=== PATIENT | male | born 1975 | race African-American/Black ===

== ENCOUNTER 2018-08-21 19:28 | Inpatient (IN) | payer OTHER ==
[~2018-08-21] VITALS: Ht 172.7 cm; Wt 92.5 kg
[2018-08-21 19:29] VITALS: BP 143/62
[2018-08-21] MEDS ORDERED: NORVASC5 MG PO (19:35)
[2018-08-21] MEDS ORDERED: INDAPAMIDE2.5 MG PO (19:35)
[2018-08-21] MEDS ORDERED: LIPITOR 20 MG T20 M1 PO (19:35)
[2018-08-21] MEDS ORDERED: COZAAR 25 MG TA25 M2 PO (19:36)
[2018-08-21] MEDS ORDERED: MELATONIN5 M1 PO (19:36)
[2018-08-21] MEDS ORDERED: ASPIR 8181 M1 PO (19:36)
[2018-08-21] MEDS ORDERED: RESTORIL15 MG PO (19:37)
[2018-08-21 21:40] LABS: CALCIUM 9.3 mg/dL (8.5-10.1); CREATININE 1.7 mg/dL (0.7-1.3); POTASSIUM 3.2 mmol/L (3.5-5.1)
[2018-08-21 21:44] LABS: APTT 25.6 Seconds (24.5-32.8); PROTIME 9.8 Seconds (9.3-11.4)
[2018-08-21 22:49] LABS: MCH 17.6 pg (26.0-34.0); MCHC 29.5 % (28.0-37.0); MCV 59.5 fL (80.0-100.0); PLATELET COUNT 220 thou/uL (150-400); PLATELET ESTIMATE NORMAL; RBC 3.26 mil/uL (4.50-6.00); RDW 21.8 % (10.5-14.5); WBC 5.3 thou/uL (4.0-11.0)
[2018-08-21 22:50] LABS: ABSOLUTE NEUTROPHILS 3.3 thou/uL (1.4-8.2); ANISOCYTOSIS 2+; HYPOCHROMASIA 3+; MICROCYTES 3+; POLYCHROMASIA 2+
[2018-08-21 23:35] VITALS: BP 130/78; BP 134/75; BP 139/89; BP 144/74; BP 148/81
[2018-08-22 03:15] VITALS: BP 128/76; BP 129/78; BP 130/82; BP 132/89; BP 133/81
[2018-08-22 03:46] LABS: % SATURATION 3 % (20-39); IRON 15 ug/dL (65-175); TIBC 469 ug/dL (250-450)
[2018-08-22 06:21] LABS: HEMATOCRIT 19.2 % (42.0-52.0); HEMOGLOBIN 5.7 gm/dL (14.0-18.0)
[2018-08-22 06:59] LABS: HEMATOCRIT 25.1 % (42.0-52.0); HEMOGLOBIN 7.9 gm/dL (14.0-18.0); MCH 21.1 pg (26.0-34.0); MCHC 31.5 g/dL (28.0-37.0); MCV 66.9 fL (80.0-100.0); RBC 3.75 mil/uL (4.50-6.00); RDW 28.8 % (10.5-14.5); WBC 5.5 thou/uL (4.0-11.0)
[2018-08-22 07:04] LABS: CALCIUM 9.3 mg/dL (8.5-10.1); CREATININE 1.8 mg/dL (0.7-1.3); POTASSIUM 3.7 mmol/L (3.5-5.1)
--- NOTE | 2018-08-22 08:01 | EKG ---
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: phani : 1975 Requested By: Lisandra Dooley Order Number: [id number] MD: Lisandro Jauregui Measurements Intervals [place] Rate: 83 P: 50 HI: 147 QRS: 47 QRSD: 87 T: 71 QT: 367 QTc: 432 Interpretive Statements Sinus rhythm Consider left ventricular hypertrophy Nonspecific T abnrm, anterolateral leads Compared to ECG 08/02/2017 00:06:05 Sinus tachycardia no longer present Atrial abnormality no longer present T-wave abnormality no longer present Electronically Signed On 08-22-2018 8:01:19 CDT by Lisandro Jauregui [email or web address] ��������������������������������������������� <ELECTRONICALLY SIGNED> ���������������������������������������� By: Lisandro Jauregui MD ��������������������������������������������� 08/22/18800 21 21 Lisandro Jauregui MD /EPI
[2018-08-22 14:39] VITALS: BP 125/87
[2018-08-22] MEDS ORDERED: FOCUS FACTOR PO (15:00)
[2018-08-22] MEDS ORDERED: UNICOMPLEX M TA1 TA1 PO (15:01)
[2018-08-22 15:13] VITALS: BP 145/94
--- NOTE | 2018-08-22 15:56 | NUR ---
ADM PT CAME IN FROM ER. PT ORIENTED TO ROOM. PT ON CLR DIET. NPO IN MN FOR UPPER AND LOWER GI. BOWEL PREP STARTED. PT INSTRUCTED. WILL CONTINUE TO MONITOR.
[2018-08-22 20:22] VITALS: BP 133/90
[2018-08-23 03:31] VITALS: BP 129/81
--- NOTE | 2018-08-23 04:13 | NUR ---
Completed bowel prep without any issues. Last reported bm around 0300 light brown to yellow , liquid , no formed stool. Kept NPO since MN for EGD and Colonoscopy. UP ad anastasiya in room with steady gait. Denies any weakness. No active bleeding noted. Will continue to monitor.
[2018-08-23 05:52] LABS: HEMATOCRIT 26.6 % (42.0-52.0); HEMOGLOBIN 8.1 gm/dL (14.0-18.0)
[2018-08-23 07:26] VITALS: BP 119/82
[2018-08-23 11:31] VITALS: BP 128/77
[2018-08-23] MEDS ORDERED: PROTONIX40 M1 PO (14:12)
[2018-08-23] MEDS ORDERED: IRON325 PO (14:13)
--- NOTE | 2018-08-23 14:30 | NUR ---
ASSUMED PATIENT CARE AT 0700, A/O X2. NO DISDRESS NOTED. WOUND PICTURES TAKING. PICC LINE DC'D. WILL DC TO HOME WITHY HH SOON.
[2018-08-23 14:49] VITALS: BP 128/77
--- NOTE | 2018-08-23 15:22 | NUR ---
PATIENT BACK TO [facility] FROM GI LAB. TOLERATED DIET. VSS. WILL HAVE M2 STUDY AT OUT PATIENT. DC TO HOME SOON.
--- NOTE | 2018-08-25 10:06 | PATH ---
[facility] [place] [address] PATHOLOGY RPT PROCEDURE Name: TAN SHUKLA Room #: 354-P DIS IN M.R.#: [id number] ������������������ Admission: 08/21/18 ������������������ Date of : 71 Discharge: 08/23/18 Report #: [id number] Path Case #: [id number] [facility] Accession Number: [id number] . 01 Material submitted: . PART A: duodenum - BX DUODENUM R/O CELIAC SPRUE PART B: stomach - BX GASTRITIS R/O H PYLORI PART C: rectum - BX POLYP AT RECTUM X6 . 01 Clinical history: . Pre-OP DX: Anemia Post-OP DX: Gastritis, rectal polyps . 02 Diagnosis: A. Small bowel mucosa, duodenum, rule out celiac sprue, endoscopic biopsy: - No diagnostic abnormalities present. - Negative for villous blunting or increase in intraepithelial lymphocytes. . B. Gastric mucosa, gastritis, rule out H. pylori, endoscopic biopsy: - Mild chronic inflammation. - Negative for intestinal metaplasia or atrophy. - Negative for Helicobacter pylori (properly controlled immunohistochemical stain performed). . C. Polyp x 6, rectum, endoscopic biopsy: - All fragments sampled showing changes compatible with a hyperplastic polyp. - Negative for dysplasia. (IUV:pit 08/24/2018) QTP/08/24/2018 . 02 Electronically signed: . Staci Francis MD, Pathologist NPI- [id number] . 01 Gross description: . A. Received in formalin labeled "Tan Shukla, JOLENE duodenum, rule out celiac sprue," are 2 segments of pelaez soft tissue measuring 0.5 x 0.1 x 0.1 cm in aggregate dimensions and ranging from 0.2 to 0.3 cm in maximum dimension. The specimen is entirely submitted in cassette A1. . B. Received in formalin labeled "Tan Shukla BX gastritis, rule out H. pylori," is a single segment of pelaez soft tissue measuring 0.6 cm in maximum dimension. The specimen is entirely submitted in cassette B1. . C. Received in formalin labeled "Tan Shukla BX polyp at [address] [address] PATHOLOGY RPT PROCEDURE Name: TAN SHUKLA Room #: 354-P DIS IN M.R.#: [id number] ������������������ Admission: 08/21/18 ������������������ Date of : 71 Discharge: 08/23/18 Report #: [id number] Path Case #: [id number] x6," are 3 segments of pelaez soft tissue measuring 1.0 x 0.8 x 0.3 cm in aggregate dimensions and ranging from 0.1 to 0.6 cm in maximum dimension. The specimen is submitted entirely in cassette C1. After thorough examination of the specimen container, no additional tissue was recovered. (TSD; 08/23/2018) TOB/TOB . 02 Pathologist provided ICD-10: K29.50, K62.1 . 02 CPT . 115419, 734537, 963960, Z78124 Specimen Comment: A courtesy copy of this report has been sent to Specimen Comment: [phone], , . Specimen Comment: Report sent to ,DR CISNEROS / DR VELIZ Specimen Comment: A duplicate report has been generated due to demographic updates. Performed at: [address], [place] [id number] MD Florentin Cardona MD Phone: [phone] Performed at: [address] [id number] MD Staci Francis MD Phone: [phone]
== END 2018-08-23 15:38 | disposition home health service (06) | DRG 378 ==
LOC: ER 19:28 → EROBS 22:16 → 3W 22:16
PROVIDERS: Emergency Medicine; Nurse Practitioner Acute Care; ADMIT Internal Medicine
PROC: 30233N1 Transfusion of Nonautologous Red Blood Cells into Peripheral Vein, Percutaneous Approach (ICD-10-PCS; principal; 2018-08-21)
PROC: 0DB78ZX Excision of Stomach, Pylorus, Via Natural or Artificial Opening Endoscopic, Diagnostic (ICD-10-PCS; 2018-08-23)
PROC: 0DBP8ZX Excision of Rectum, Via Natural or Artificial Opening Endoscopic, Diagnostic (ICD-10-PCS; 2018-08-23)
PROC: 0DB98ZX Excision of Duodenum, Via Natural or Artificial Opening Endoscopic, Diagnostic (ICD-10-PCS; 2018-08-23)
DX: K92.2 Gastrointestinal hemorrhage, unspecified (principal); D62 Acute posthemorrhagic anemia; D50.9 Iron deficiency anemia, unspecified; N18.9 Chronic kidney disease, unspecified; E87.6 Hypokalemia; I12.9 Hypertensive chronic kidney disease with stage 1 through stage 4 chronic kidney disease, or unspecified chronic kidney disease; F17.210 Nicotine dependence, cigarettes, uncomplicated; E78.5 Hyperlipidemia, unspecified; Z86.73 Personal history of transient ischemic attack (TIA), and cerebral infarction without residual deficits; Z79.82 Long term (current) use of aspirin; Z83.3 Family history of diabetes mellitus; Z82.3 Family history of stroke; Z80.3 Family history of malignant neoplasm of breast
CPT/HCPCS: 10879; 62110; 62900

== ENCOUNTER → 2018-10-09 | Outpatient (CLI) | payer OTHER ==
[~2018-10-09] MED LIST: ASPIR 8181 M1 PO; COZAAR 25 MG TA25 M2 PO; FOCUS FACTOR PO; INDAPAMIDE2.5 MG PO; IRON325 PO; LIPITOR 20 MG T20 M1 PO; MELATONIN5 M1 PO; NORVASC5 MG PO; PROTONIX40 M1 PO; RESTORIL15 MG PO; UNICOMPLEX M TA1 TA1 PO
--- NOTE | ~2018-10-09 | P ---
[facility] [place] [address] [place] [address] PROCEDURE REPORT Name: DEWEYESTERELLIOTT Room #: REG [facility] Kane.#: [id number] Admission: 10/09/18 ������������������ Attend Phys: Amol Torrez MD Discharge: ������������������ Date of : 71 Report #: [id number] THIS REPORT FOR: //name// CC: Dr. Jose Bello DATE OF SERVICE: 10/13/2018 SMALL BOWEL CAPSULE STUDY BRIEF HISTORY: The patient is a 43-year-old male undergoing evaluation for iron deficiency anemia. FINDINGS: The patient presented to the GI lab and swallowed the M2 capsule study. Small bowel passage time was noted to be fairly rapid at 24 minutes. He did have evidence of gastritis, but active bleeding was not seen. 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 It is felt this is likely within the reach of the push enteroscope. In addition, a small jejunal polyp was seen in the proximal jejunum as well. Active bleeding was not identified. It is possible he may be bleeding from the AVM. He may have additional AVMs as well. We will have him return to see me in followup in the office to discuss further management such as push endoscopy to further evaluate these lesions in his anemia. We will also obtain a CBC for followup. ��������������������������������������������� ���������������������������������������� By: ��������������������������������������������� [id number] Amol Torrez MD /nt
== END | disposition home or self-care (01) ==
LOC: GI 06:17
DX: K63.5 Polyp of colon (principal); K55.20 Angiodysplasia of colon without hemorrhage; K29.70 Gastritis, unspecified, without bleeding; D50.9 Iron deficiency anemia, unspecified; I10 Essential (primary) hypertension; E78.5 Hyperlipidemia, unspecified; F17.210 Nicotine dependence, cigarettes, uncomplicated; Z79.82 Long term (current) use of aspirin; Z86.73 Personal history of transient ischemic attack (TIA), and cerebral infarction without residual deficits; Z80.3 Family history of malignant neoplasm of breast; Z83.3 Family history of diabetes mellitus; Z79.899 Other long term (current) drug therapy; Z98.890 Other specified postprocedural states